=== PATIENT | male | born 2000 | race Two or more races ===

== ENCOUNTER 2021-11-12 11:10 | Emergency (ER) | payer MEDICAID, OTHER ==
[~2021-11-12] VITALS: Ht 172.7 cm; Wt 76.2 kg
[2021-11-12 11:16] VITALS: BP 156/90
[2021-11-12] MEDS ORDERED: IBUP600T27 PO (12:57)
[2021-11-12] MEDS ORDERED: IBUPROFEN 800 MG TAB PO ONE (13:30)
== END 2021-11-12 13:41 | disposition home or self-care (01) ==
LOC: ER 11:10
DX: R07.89 Other chest pain (principal)
CPT/HCPCS: 71046; 93005